=== PATIENT | female | born 1985 | race Caucasian/White ===

== ENCOUNTER → 2018-03-30 | Outpatient (CLI) | payer BC ==
--- NOTE | 2018-03-30 10:51 | KCIC ---
First trimester OB ultrasound dated 03/30/2018. No comparison available. CLINICAL INDICATION: Unsure dates. FINDINGS: Uterus measures 12.3 x 6.2 x 5.8 cm. Gestational sac and pole in the endometrial canal. The crown-rump length measures 3.17 cm, correlating with a 10 week 0 day gestation with estimated sonographic date of delivery of 10/26/2018. Yolk sac is visualized. Heart rate 173 bpm. No subchorionic collection. Gestational sac is normal in morphology. Fluid volume appears appropriate. Placenta is not well evaluated but appears to be anterior in location. Right ovary measures 3.3 x 2.0 x 1.5 cm. Left ovary measures 3.5 x 2.3 x 2.0 cm. No adnexal mass or free fluid. IMPRESSION: Single viable intrauterine gestation with estimated sonographic gestational age 10 weeks 0 days. No acute findings. Electronically signed by: Larry Suh MD (03/30/2018 10:48 AM) [id number]
== END | disposition home or self-care (01) ==
LOC: KCIC US 10:10
PROVIDERS: ATTEND Family Medicine
DX: Z34.81 Encounter for supervision of other normal pregnancy, first trimester (principal); Z3A.10 10 weeks gestation of pregnancy
CPT/HCPCS: 76801

== ENCOUNTER → 2018-06-30 | Outpatient (CLI) | payer BC ==
--- NOTE | 2018-06-30 12:31 | KCIC ---
Examination: Obstetric ultrasound greater than 14 weeks HISTORY: History of small for dates COMPARISON: None available. FINDINGS: Single living intrauterine with heart rate of 135 bpm. Three-vessel cord is seen. 4 chamber heart seen. Fluid in the bladder, kidneys, spine, brain, heart seen. The stomach could not be clearly identified. position is cephalic. Cervical length measures 5.4 cm. Amniotic fluid is normal Amniotic fluid index is 10.2 The biparietal diameter measures 5.5 cm corresponding to 22 weeks and 6 days Head circumference measures 20.3 cm corresponding 22 weeks and 4 days Abdominal circumference measures 17.6 cm corresponding to 22 weeks and 4 days Femur length measures 4.2 cm corresponding 24 weeks and 0 days. Head circumference to abdominal circumference ratio 1.1. Estimated weight is 564 g. LMP 01/22/2018. Clinical age is 22 weeks and 5 days with estimated date of delivery by LMP 10/29/2018. Estimated gestational age is 23 weeks and 0 days. Estimated date of delivery by ultrasound is 10/27/2018. The placenta is low-lying. Cephalic index 80.3 Head circumference to abdominal circumference ratio 1.1. Femur length to biparietal diameter 77.9 Femur length to head circumference 21.1 Femur length abdominal circumference 24.3. IMPRESSION: 1. Single living intrauterine with heart rate of 135 bpm. Estimated gestational age is 23 weeks and 0 days. 2. Low-lying placenta. 3. stomach would not be clearly identified. Close follow-up examination can be considered. Electronically signed by: Speedy Hidalgo MD (06/30/2018 12:26 PM) [email or web address]
== END | disposition home or self-care (01) ==
LOC: KCIC US 08:27
PROVIDERS: ATTEND Family Medicine
DX: O44.42 Low lying placenta NOS or without hemorrhage, second trimester (principal); O36.5920 Maternal care for other known or suspected poor fetal growth, second trimester, not applicable or unspecified; Z3A.23 23 weeks gestation of pregnancy
CPT/HCPCS: 76805

== ENCOUNTER 2018-10-19 20:01 | Inpatient (IN) | payer BC ==
[~2018-10-19] VITALS: Ht 149.9 cm; Wt 75.5 kg
[~2018-10-19 20:01] MED LIST: IV RINGERS,LACTATED 1000ML 1,000 ML IV SCH
[2018-10-19 20:47] LABS: BILIRUBIN,URINE NEGATIVE (NEG); CLARITY,URINE CLEAR; COLOR,URINE YELLOW; NITRITE,URINE NEGATIVE (NEG); PROTEIN,URINE NEGATIVE (NEG-TRACE); UROBILINOGEN,URINE 0.2 mg/dL (0.2 mg/dL)
[2018-10-19 20:50] LABS: AMNIO PT POSITIVE
[2018-10-19 21:07] LABS: BACTERIA,URINE FEW /HPF (0-FEW); RBC,URINE 0 /HPF (0-2); SQUAMOUS EPITHELIAL CELL,UR FEW /LPF; WBC,URINE OCC /HPF (0-4)
[2018-10-19] MEDS ORDERED: IV RINGERS,LACTATED 1000ML 1,000 ML IV SCH (22:00)
[2018-10-19] MEDS ORDERED: 0.9 % SODIUM CHLORIDE 10 ML DISP.SYRIN. IV PRN (22:00)
[2018-10-19] MEDS ORDERED: TERBUTALINE 1 MG/ML VIAL. SQ PRN (22:00)
[2018-10-19] MEDS ORDERED: CLINDAMYCIN 900MG PREMIX 50 ML IV SCH (22:00)
[2018-10-19] MEDS ORDERED: ACETAMINOPHEN 325 MG TABLET. PO PRN (22:00)
[2018-10-19] MEDS ORDERED: CITRIC ACID/SODIUM CITRATE 30 ML SOLUTION. PO PRN (22:00)
[2018-10-19] MEDS ORDERED: OXYTOCIN 30 UNIT/500 ML PREMIX 500 ML IV PRN (22:00)
[2018-10-19] MEDS ORDERED: ONDANSETRON PF 4 MG/2 ML VIAL. IV PRN (22:00)
[2018-10-19 22:11] VITALS: BP 140/88
[2018-10-19 22:53] LABS: BASO % 0 % (0-3); EOS # 0.2 x10^3/uL (0.0-0.7); EOS % 1 % (0-3); HEMATOCRIT 37.2 % (36.0-47.0); HEMOGLOBIN 12.6 g/dL (12.0-15.5); LYMPH # 1.7 x10^3/uL (1.0-4.8); LYMPH % 14 % (24-48); MEAN CORPUSCULAR HEMOGLOBIN 30 pg (25-35); MEAN CORPUSCULAR HGB CONC 34 g/dL (31-37); MEAN CORPUSCULAR VOLUME 89 fL (79-100); MONO # 0.5 x10^3/uL (0.0-1.1); MONO % 4 % (0-9); NEUT # 10.2 x10^3uL (1.8-7.7); NEUT % 81 % (31-73); PLATELET COUNT 147 x10^3/uL (140-400); RED CELL DISTRIBUTION WIDTH 14.1 % (11.5-14.5); WHITE BLOOD COUNT 12.6 x10^3/uL (4.0-11.0)
[2018-10-20] MEDS ORDERED: hydrOXYzine 25 MG TABLET PO PRN (02:00)
[2018-10-20] MEDS ORDERED: ACETAMINOPHEN 500 MG TABLET PO PRN (02:00)
[2018-10-20] MEDS ORDERED: hydrOXYzine PAMOATE 25 MG CAPSULE PO ONE (03:00)
[2018-10-20] MEDS ORDERED: METOCLOPRAMIDE HCL 10 MG/2 ML VIAL. ONE (05:51)
[2018-10-20] MEDS ORDERED: ONDANSETRON PF 4 MG/2 ML VIAL. ONE (05:51)
[2018-10-20] MEDS ORDERED: SUCCINYLCHOLINE 200 MG/10 ML VIAL. ONE (05:51)
[2018-10-20] MEDS ORDERED: PROPOFOL 20 ML IV ONE (05:51)
[2018-10-20] MEDS ORDERED: FAMOTIDINE 20 MG/2 ML VIAL ONE (05:51)
[2018-10-20] MEDS ORDERED: DEXAMETHASONE SOD PHOS 4 MG/ML VIAL ONE (05:52)
--- NOTE | 2018-10-20 05:57 | PDOC1 ---
OB - History Hx of Present Care: Good Care Ultrasounds: Normal mid trimester US Obstetrical Complications: None Medical Complications: None Past Family/Social History * Past Medical, Surgical, Family and Obstetric Histories reviewed from chart. Rubella: Immune RPR/VDRL: Negative GBS Status: Negative HBsAG: Negative OB - Chief Complaint & HPI Date of Admission: Date of Admission: October 19, 2018 at 20:01 Chief Complaint/History : 2 Para: 1 EGA: 39 Reason for admission: active labor Indication for : desires repeat Admission Nurse Assessment Rev: Yes OB - Admission Exam Physical Exam Vitals: VS - Last 72 Hours, by Label Date Time Temp Pulse Resp B/P (MAP) Pulse Ox O2 Delivery O2 Flow Rate FiO2 10/20/18 05:36 64 133/83 10/19/18 22:11 98.2 82 18 140/88 (105) 99 Room Air 98.2 HEENT: Normal Heart: Regular Rate Lungs: Clear Abdomen: Gravid, Non tender, Soft Extremities: Edema Reflexes: Normal Cervical Dilatation: Fingertip Effacement: 25% Station: -3 Membranes: Ruptured Amniotic Fluid: Clear Decelerations: Variable decelerations Contractions on Admission: 6-10 Minutes Apart Text A: 39 wks IUP SROM Previous c/s P: Admit for repeat c/s. pt. started having variable decels and required emergent c/s. ODILON SMITH Jr, MD October 20, 2018 05:57
[2018-10-20] MEDS ORDERED: fentaNYL PF VIAL 100 MCG/2 ML VIAL ONE (06:16)
--- NOTE | 2018-10-20 06:59 | PDOC4 ---
OB Operative Note Date: October 20, 2018 PRE OP DIAGNOSIS: Previoujs C- section (SROM) POST OP DIAGNOSIS: Previous C- section OPERATION PERFORMED: R [facility] Surgeon Dr. Greco Anesthesia: Gen Blood Loss 700 ml Specimen placenta and infant OB Findings: Position (Vertex), Sex (Female), (8/9), Weight (pending), Nuchal Cord (x2) Complications none Additional Remarks pt. stable ODILON GRECO Jr, MD October 20, 2018 06:59
[2018-10-20] MEDS ORDERED: KETOROLAC 30 MG/ML VIAL. IV PRN (07:00)
[2018-10-20] MEDS ORDERED: oxyCODONE/APAP 5/325 1 TAB TABLET PO PRN (07:00)
[2018-10-20] MEDS ORDERED: OXYTOCIN 30 UNIT/500 ML PREMIX 500 ML IV PRN (07:00)
[2018-10-20] MEDS ORDERED: MAG HYDROX/ALUMINUM HYD/SIMETH 30 ML ORAL.SUSP PO PRN (07:00)
[2018-10-20] MEDS ORDERED: CLINDAMYCIN 900MG PREMIX 50 ML IV ONE (07:00)
[2018-10-20] MEDS ORDERED: SIMETHICONE 80 MG TAB.CHEW PO PRN (07:00)
[2018-10-20] MEDS ORDERED: diphenhydrAMINE ORAL ELIXIR 12.5 MG/5 ML ML PO PRN (07:00)
[2018-10-20] MEDS ORDERED: ONDANSETRON PF 4 MG/2 ML VIAL. IV PRN (07:00)
[2018-10-20] MEDS ORDERED: ZOLPIDEM 5 MG TABLET. PO PRN (07:00)
[2018-10-20] MEDS ORDERED: 0.9 % SODIUM CHLORIDE 10 ML DISP.SYRIN. IV PRN (07:00)
[2018-10-20] MEDS ORDERED: IBUPROFEN 400 MG TABLET. PO PRN (07:00)
[2018-10-20] MEDS ORDERED: NALOXONE 0.4 MG/ML VIAL. IV PRN (07:00)
[2018-10-20] MEDS ORDERED: KETOROLAC 30 MG/ML INJ FOR OR. INJ ONE (07:04)
[2018-10-20] MEDS ORDERED: SEVOFLURANE 61 TO 120 MINUTES. IH ONE (07:04)
[2018-10-20] MEDS ORDERED: OXYTOCIN 10 UNIT/ML VIAL. ONE (07:04)
[2018-10-20] MEDS ORDERED: HYDROmorphone 12mg/30ml PCA 30 ML IV PRN (07:15)
[2018-10-20] MEDS ORDERED: HYDROmorphone 2 MG/ML VIAL IV ONE (07:15)
[2018-10-20] MEDS ORDERED: AZITHRMYCN 500MG IVPB FOR OMNI 250 ML IV ONE (07:30)
--- NOTE | 2018-10-20 07:34 | PDOC1 ---
CLERICAL AIDE Delivery Summary: CLERICAL AIDE Delivery Summary: Asked by Dr Greco to attend the repeat for variable decelerations. Female was delivered with nuchal cord X 2 , the cord was cut - infant cried and was brought to the radiant warmer where she was dried and stimulated and suctioned orally and nasally for a moderate amount of clear m ucous. with good heart, tone, cry, respiratory effort and improving color. Physical exam in brief: Near term female with a small scalp cut on the right side of scalp small amount of bleeding which has stopped will follow for need for further treatment. Infant to nursery accompanied by father per hospital protocol. Dr Tanner to continue care. Clark Mackey APRN. [facility] October 20, 2018 07:34
[2018-10-20 09:30] VITALS: BP 124/78
[2018-10-20 10:15] VITALS: BP 125/75
--- NOTE | 2018-10-20 11:20 | OP ---
DATE OF SURGERY: PREOPERATIVE DIAGNOSES: 1. A 39 weeks intrauterine . 2. Spontaneous rupture of membranes. 3. Previous section. 4. Active labor. POSTOPERATIVE DIAGNOSES: 1. A 39 weeks intrauterine . 2. Spontaneous rupture of membranes. 3. Previous section. 4. Active labor. PROCEDURE: Repeat low transverse section. SURGEON: Odilon Greco MD ANESTHESIA: GETA. ESTIMATED BLOOD LOSS: 700 mL. COMPLICATIONS: None. FINDINGS: Viable female , Apgars 8 and 9, weight pending. Nuchal cord x 2. Three-vessel cord placenta delivered under gentle traction intact. SUMMARY: A 33-year-old 2, para 1 at 39 weeks' gestation, who presented with spontaneous rupture of membranes. The patient began to go into active labor with variable decelerations, which required emergency section. The patient was counseled on risks, benefits and expectations of repeat section and voiced a clear understanding to proceed. DESCRIPTION OF PROCEDURE: The patient was taken to surgery suite and placed in dorsal supine position. She was prepped with ChloraPrep and draped in sterile fashion. After adequate anesthesia, a Pfannenstiel skin incision was made with scalpel down to and through the fascia. Fascia was extended laterally using curved Proctor scissors. The superior edge of the fascia was grasped with two Zander clamps and dissected free of the abdominal rectus muscle using blunt dissection along with Bovie cautery. Same process took place inferiorly. The abdominal rectus muscle dissected in the midline using curved Proctor scissors along with blunt dissection. The peritoneum was grasped with 2 hemostats and entered sharply with Metzenbaum scissors. Incision was extended superiorly as well as inferiorly. The Shkair ring retractor was placed. Bladder flap was created with Metzenbaum scissors and English pickups. Using sharp dissection, low transverse hysterotomy incision was made with scalpel down to the . The hysterotomy incision was extended laterally and superiorly digitally. With the aid of fundal pressure, the infant's head was delivered in a smooth atraumatic manner. Nuchal cord x 2 was visualized and reduced. With additional fundal pressure, the anterior shoulder was delivered followed by posterior shoulder and rest of female was delivered. The was suctioned with bulb syringe orally and nasally. Umbilical cord was clamped twice and cut and viable female was handed to waiting nursing staff. Umbilical cord blood as well as arterial pH were obtained. Three-vessel cord placenta was delivered under gentle traction intact. The uterus then exteriorized and cleared of clot and debris with moist lap. Hysterotomy incision was reapproximated using 1 Vicryl suture in a running locked fashion. Uterus palpated firm. Fallopian tubes and ovaries appeared normal bilaterally. Hysterotomy incision was reviewed and was hemostatic. Posterior cul-de-sac was cleared of clot and debris with moist lap. The uterus was then returned to the abdomen. The pericolic gutters were cleared of clot and debris with moist lap. Hysterotomy incision was reviewed and was hemostatic. The Shakir ring retractor was removed. Peritoneum was reapproximated using 1 Vicryl suture in running fashion. Fascia was reapproximated using Stratafix in running fashion. Skin was reapproximated using 4-0 Vicryl suture in subcuticular manner. The patient tolerated the procedure well and was taken to recovery room in stable condition. Sponge and needle counts were correct x 3. ODILON GRECO MD DR: SINCERE/chad JOB#: [id number] / [id number]
[2018-10-20 11:45] VITALS: BP 133/77
[2018-10-20] MEDS ORDERED: DIPHTH,PERTUSS(ACELL),TET TOX 0.5 ML DISP.SYRIN. VAX IM ONE (13:00)
[2018-10-20 18:00] VITALS: BP_SYST 106; BP_SYST 125; BP_DIAS 65; BP_DIAS 69
[2018-10-20 23:04] VITALS: BP 112/71
[2018-10-21 04:12] LABS: BASO % 0 % (0-3); EOS # 0.1 x10^3/uL (0.0-0.7); EOS % 1 % (0-3); HEMOGLOBIN 8.9 g/dL (12.0-15.5); LYMPH # 2.1 x10^3/uL (1.0-4.8); LYMPH % 18 % (24-48); MEAN CORPUSCULAR HEMOGLOBIN 30 pg (25-35); MEAN CORPUSCULAR HGB CONC 33 g/dL (31-37); MEAN CORPUSCULAR VOLUME 90 fL (79-100); MONO # 0.6 x10^3/uL (0.0-1.1); MONO % 6 % (0-9); NEUT # 8.7 x10^3uL (1.8-7.7); NEUT % 75 % (31-73); PLATELET COUNT 114 x10^3/uL (140-400); RED CELL DISTRIBUTION WIDTH 14.4 % (11.5-14.5); WHITE BLOOD COUNT 11.5 x10^3/uL (4.0-11.0)
[2018-10-21] MEDS: IBUPROFEN 400 MG TABLET. PO PRN ×4 (05:30→20:15)
[2018-10-21 06:15] VITALS: BP 124/72
[2018-10-21] MEDS: HYDROmorphone 2 MG TABLET PO PRN ×4 (11:08→23:01)
[2018-10-21] MEDS: FERROUS SULFATE 325 MG TABLET. PO SCH (11:08)
[2018-10-21 11:45] VITALS: BP 136/59
--- NOTE | 2018-10-21 13:02 | PDOC ---
OB Progress Note Date of Service 10/21/18 Time of Evaluation 1300 Notes Pt. feeling well. Lab Laboratory Tests Test 10/19/18 20:20 10/19/18 20:35 10/19/18 22:37 10/21/18 03:10 Urine Collection Type Unknown Urine Color Yellow Urine Clarity Clear Urine pH 6.0 Urine Specific [place] <=1.005 Urine Protein Negative mg/dL (NEG-TRACE) Urine Glucose (UA) Negative mg/dL (NEG) Urine Ketones (Stick) Negative mg/dL (NEG) Urine Blood Negative (NEG) Urine Nitrite Negative (NEG) Urine Bilirubin Negative (NEG) Urine Urobilinogen Dipstick 0.2 mg/dL (0.2 mg/dL) Urine Leukocyte Esterase Negative (NEG) Urine RBC 0 /HPF (0-2) Urine WBC Occ /HPF (0-4) Urine Squamous Epithelial Cells Few /LPF Urine Bacteria Few /HPF (0-FEW) Amniotic Fluid Swab Test Positive White Blood Count 12.6 x10^3/uL (4.0-11.0) 11.5 x10^3/uL (4.0-11.0) Red Blood Count 4.20 x10^6/uL (3.50-5.40) 3.00 x10^6/uL (3.50-5.40) Hemoglobin 12.6 g/dL (12.0-15.5) 8.9 g/dL (12.0-15.5) Hematocrit 37.2 % (36.0-47.0) 27.0 % (36.0-47.0) Mean Corpuscular Volume 89 fL (79-100) 90 fL (79-100) Mean Corpuscular Hemoglobin 30 pg (25-35) 30 pg (25-35) Mean Corpuscular Hemoglobin Concent 34 g/dL (31-37) 33 g/dL (31-37) Red Cell Distribution Width 14.1 % (11.5-14.5) 14.4 % (11.5-14.5) Platelet Count 147 x10^3/uL (140-400) 114 x10^3/uL (140-400) Neutrophils (%) (Auto) 81 % (31-73) 75 % (31-73) Lymphocytes (%) (Auto) 14 % (24-48) 18 % (24-48) Monocytes (%) (Auto) 4 % (0-9) 6 % (0-9) Eosinophils (%) (Auto) 1 % (0-3) 1 % (0-3) Basophils (%) (Auto) 0 % (0-3) 0 % (0-3) Neutrophils # (Auto) 10.2 x10^3uL (1.8-7.7) 8.7 x10^3uL (1.8-7.7) Lymphocytes # (Auto) 1.7 x10^3/uL (1.0-4.8) 2.1 x10^3/uL (1.0-4.8) Monocytes # (Auto) 0.5 x10^3/uL (0.0-1.1) 0.6 x10^3/uL (0.0-1.1) Eosinophils # (Auto) 0.2 x10^3/uL (0.0-0.7) 0.1 x10^3/uL (0.0-0.7) Basophils # (Auto) 0.0 x10^3/uL (0.0-0.2) 0.0 x10^3/uL (0.0-0.2) Treponema pallidum Antibody Nonreactive (Nonreactive) Hepatitis B Surface Antigen Nonreactive (Nonreactive) Laboratory Tests Test 10/21/18 03:10 White Blood Count 11.5 x10^3/uL (4.0-11.0) Red Blood Count 3.00 x10^6/uL (3.50-5.40) Hemoglobin 8.9 g/dL (12.0-15.5) Hematocrit 27.0 % (36.0-47.0) Mean Corpuscular Volume 90 fL (79-100) Mean Corpuscular Hemoglobin 30 pg (25-35) Mean Corpuscular Hemoglobin Concent 33 g/dL (31-37) Red Cell Distribution Width 14.4 % (11.5-14.5) Platelet Count 114 x10^3/uL (140-400) Neutrophils (%) (Auto) 75 % (31-73) Lymphocytes (%) (Auto) 18 % (24-48) Monocytes (%) (Auto) 6 % (0-9) Eosinophils (%) (Auto) 1 % (0-3) Basophils (%) (Auto) 0 % (0-3) Neutrophils # (Auto) 8.7 x10^3uL (1.8-7.7) Lymphocytes # (Auto) 2.1 x10^3/uL (1.0-4.8) Monocytes # (Auto) 0.6 x10^3/uL (0.0-1.1) Eosinophils # (Auto) 0.1 x10^3/uL (0.0-0.7) Basophils # (Auto) 0.0 x10^3/uL (0.0-0.2) Medications Current Medications Ringer's Solution 1,000 ml @ 125 mls/hr Q8H IV Last administered on 10/20/18at 07:32; Start 10/19/18 at 20:00 Sodium Chloride (Normal Saline Flush) 3 ml QSHIFT PRN IV AFTER MEDS AND BLOOD DRAWS; Start 10/19/18 at 22:00 Ringer's Solution 1,000 ml @ 125 mls/hr Q8H IV Last administered on 10/21/18at 00:37; Start 10/19/18 at 22:00 Acetaminophen (Tylenol) 650 mg PRN Q6HRS PRN PO MILD PAIN / TEMP; Start 10/19/18 at 22:00; Stop 10/20/18 at 01:57; Status DC Ondansetron HCl (Zofran) 4 mg PRN Q4HRS PRN IV NAUSEA/VOMITING 1ST CHOICE; Start 10/19/18 at 22:00 Citric Acid/ Sodium Citrate (Bicitra) 30 ml 1X PRN PRN PO DYSPEPSIA Last administered on 10/20/18at 05:46; Start 10/19/18 at 22:00; Stop 10/20/18 at 21:59; Status DC Terbutaline Sulfate (Brethine) 0.25 mg 1X PRN PRN SQ SEE COMMENTS Last administered on 10/20/18at 05:36; Start 10/19/18 at 22:00; Stop 10/20/18 at 21:59; Status DC Clindamycin Phosphate 50 ml @ 100 mls/hr Q8H IV ; Start 10/19/18 at 22:00; Status Cancel Oxytocin/Sodium Chloride 500 ml @ 0 mls/hr CONT PRN PRN IV Post delivery bleeding; Start 10/19/18 at 22:00 Ibuprofen (Motrin) 800 mg PRN Q6HRS PRN PO MODERATE PAIN 1ST CHOICE Last administered on 10/21/18at 05:30; Start 10/19/18 at 22:00 Acetaminophen (Tylenol) 1,000 mg PRN Q6HRS PRN PO MILD PAIN / TEMP Last administered on 10/20/18at 02:26; Start 10/20/18 at 02:00 Hydroxyzine HCl (Atarax) 50 mg PRN Q6HRS PRN PO ITCHING; Start 10/20/18 at 02:00 Hydroxyzine Pamoate (Vistaril) 50 mg 1X ONCE PO Last administered on 10/20/18at 02:35; Start 10/20/18 at 03:00; Stop 10/20/18 at 03:01; Status DC Clindamycin Phosphate 50 ml @ 100 mls/hr 1X ONCE IV ; Start 10/20/18 at 07:00; Stop 10/20/18 at 07:29; Status DC Propofol 20 ml @ As Directed STK-MED ONCE IV ; Start 10/20/18 at 05:51; Stop 10/20/18 at 05:52; Status DC Famotidine (Pepcid Vial) 20 mg STK-MED ONCE .ROUTE ; Start 10/20/18 at 05:51; S top 10/20/18 at 05:52; Status DC Metoclopramide HCl (Reglan Vial) 10 mg STK-MED ONCE .ROUTE ; Start 10/20/18 at 05:51; Stop 10/20/18 at 05:52; Status DC Ondansetron HCl (Zofran) 4 mg STK-MED ONCE .ROUTE ; Start 10/20/18 at 05:51; Stop 10/20/18 at 05:52; Status DC Succinylcholine Chloride (Anectine) 200 mg STK-MED ONCE .ROUTE ; Start 10/20/18 at 05:51; Stop 10/20/18 at 05:52; Status DC Dexamethasone Sodium Phosphate (Decadron) 4 mg STK-MED ONCE .ROUTE ; Start 10/20/18 at 05:52; Stop 10/20/18 at 05:53; Status DC Fentanyl Citrate (Fentanyl 2ml Vial) 100 mcg STK-MED ONCE .ROUTE ; Start 10/20/18 at 06:16; Stop 10/20/18 at 06:17; Status DC Sodium Chloride (Normal Saline Flush) 3 ml QSHIFT PRN IV AFTER MEDS AND BLOOD DRAWS; Start 10/20/18 at 07:00 Oxytocin/Sodium Chloride 500 ml @ 125 mls/hr CONT PRN IV EXCESSIVE POST- BLEEDING; Start 10/20/18 at 07:00; Stop 10/20/18 at 14:59; Status DC Ibuprofen (Motrin) 800 mg PRN Q4HRS PRN PO INFLAMMATION; Start 10/20/18 at 07:00; Stop 10/20/18 at 10:24; Status DC Ondansetron HCl (Zofran) 4 mg PRN Q6HRS PRN IV NAUSEA/VOMITING; Start 10/20/18 at 07:00; Stop 10/21/18 at 12:11; Status DC Docusate Sodium (Colace) 100 mg PRN BID PRN PO CONSTIPATION; Start 10/20/18 at 07:00 Al Hydroxide/Mg Hydroxide (Mylanta Plus Xs) 30 ml PRN Q4HRS PRN PO HEARTBURN / GAS; Start 10/20/18 at 07:00 Simethicone (Gas-X) 80 mg PRN AFTMEALHC PRN PO GAS / BLOATING; Start 10/20/18 at 07:00 Diphenhydramine HCl (Benadryl Oral Elixir) 12.5 mg PRN Q6HRS PRN PO ITCHING; Start 10/20/18 at 07:00 Ferrous Sulfate (Feosol) 325 mg BIDWMEALS PO Last administered on 10/21/18at 11:08; Start 10/20/18 at 08:00 Zolpidem Tartrate (Ambien) 5 mg PRN QHS PRN PO INSOMNIA, MAY REPEAT X1; Start 10/20/18 at 07:00 Oxycodone/ Acetaminophen (Percocet 5/325) 2 tab PRN Q4HRS PRN PO MODERATE PAIN; Start 10/20/18 at 07:00 Ketorolac Tromethamine (Toradol 30mg Vial) 30 mg PRN Q6HRS PRN IV PAIN; Start 10/20/18 at 07:00; Stop 10/25/18 at 06:59 Fentanyl Citrate 30 ml @ 0 mls/hr CONT PRN PRN IV PER PROTOCOL; Start 10/20/18 at 07:00; Stop 10/20/18 at 07:24; Status DC Naloxone HCl (Narcan) 0.4 mg PRN Q2MIN PRN IV SEE INSTRUCTIONS; Start 10/20/18 at 07:00 Ketorolac Tromethamine (Toradol For Or Only) 30 mg STK-MED ONCE INJ ; Start 10/20/18 at 07:04; Stop 10/20/18 at 07:05; Status DC Sevoflurane (Ultane) 60 ml STK-MED ONCE IH ; Start 10/20/18 at 07:04; Stop 10/20/18 at 07:05; Status DC Oxytocin (Pitocin) 10 unit STK-MED ONCE .ROUTE ; Start 10/20/18 at 07:04; Stop 10/20/18 at 07:05; Status DC Hydromorphone HCl (Dilaudid) 2 mg 1X ONCE IV Last administered on 10/20/18at 07:26; Start 10/20/18 at 07:15; Stop 10/20/18 at 07:23; Status DC Hydromorphone HCl 30 ml @ 0 mls/hr CONT PRN PRN IV PER PROTOCOL; Start 10/20/18 at 07:15 Azithromycin 250 ml @ 250 mls/hr 1X ONCE IV ; Start 10/20/18 at 07:30; Stop 10/20/18 at 08:29; Status DC Diphtheria/ Tetanus/Acell Pertussis (Boostrix) 0.5 ml ONCE ONCE VAX IM ; Start 10/20/18 at 13:00; Stop 10/20/18 at 13:01; Status DC Hydromorphone HCl (Dilaudid) 2 mg PRN Q4HRS PRN PO SEVERE PAIN Last adm inistered on 10/21/18at 11:08; Start 10/21/18 at 10:30 Exam Abd: soft, non tender, fundus firm Incision: clean, dry and intact Assessment POD#1 s/p repeat c/s Plan of Care: Continue current Tx, Mgmt ODILON SMITH Jr, MD October 21, 2018 13:02
[2018-10-21 16:00] VITALS: BP 145/84
--- NOTE | 2018-10-21 19:10 | NUR ---
Dilaudid given PO and witnessed by Mirna Rivas RN.
[2018-10-21] MEDS: DOCUSATE SODIUM 100 MG CAPSULE. PO PRN (20:15)
[2018-10-21 23:20] VITALS: BP 118/70
[2018-10-22] MEDS: IBUPROFEN 400 MG TABLET. PO PRN ×3 (03:39→21:13)
[2018-10-22 05:52] VITALS: BP 118/70
[2018-10-22] MEDS: FERROUS SULFATE 325 MG TABLET. PO SCH (08:52)
[2018-10-22] MEDS: DOCUSATE SODIUM 100 MG CAPSULE. PO PRN ×2 (08:52→21:13)
--- NOTE | 2018-10-22 09:27 | PDOC ---
OB Progress Note Date of Service 10/22/18 Time of Evaluation 0930 Notes Pt. feeling well. No complaints. Lab Laboratory Tests Test 10/21/18 03:10 White Blood Count 11.5 x10^3/uL (4.0-11.0) Red Blood Count 3.00 x10^6/uL (3.50-5.40) Hemoglobin 8.9 g/dL (12.0-15.5) Hematocrit 27.0 % (36.0-47.0) Mean Corpuscular Volume 90 fL (79-100) Mean Corpuscular Hemoglobin 30 pg (25-35) Mean Corpuscular Hemoglobin Concent 33 g/dL (31-37) Red Cell Distribution Width 14.4 % (11.5-14.5) Platelet Count 114 x10^3/uL (140-400) Neutrophils (%) (Auto) 75 % (31-73) Lymphocytes (%) (Auto) 18 % (24-48) Monocytes (%) (Auto) 6 % (0-9) Eosinophils (%) (Auto) 1 % (0-3) Basophils (%) (Auto) 0 % (0-3) Neutrophils # (Auto) 8.7 x10^3uL (1.8-7.7) Lymphocytes # (Auto) 2.1 x10^3/uL (1.0-4.8) Monocytes # (Auto) 0.6 x10^3/uL (0.0-1.1) Eosinophils # (Auto) 0.1 x10^3/uL (0.0-0.7) Basophils # (Auto) 0.0 x10^3/uL (0.0-0.2) Medications Current Medications Ringer's Solution 1,000 ml @ 125 mls/hr Q8H IV Last administered on 10/20/18at 07:32; Start 10/19/18 at 20:00; Stop 10/21/18 at 14:07; Status DC Sodium Chloride (Normal Saline Flush) 3 ml QSHIFT PRN IV AFTER MEDS AND BLOOD DRAWS; Start 10/19/18 at 22:00; Stop 10/21/18 at 14:07; Status DC Ringer's Solution 1,000 ml @ 125 mls/hr Q8H IV Last administered on 10/21/18at 00:37; Start 10/19/18 at 22:00; Stop 10/21/18 at 14:07; Status DC Acetaminophen (Tylenol) 650 mg PRN Q6HRS PRN PO MILD PAIN / TEMP; Start 10/19/18 at 22:00; Stop 10/20/18 at 01:57; Status DC Ondansetron HCl (Zofran) 4 mg PRN Q4HRS PRN IV NAUSEA/VOMITING 1ST CHOICE; Start 10/19/18 at 22:00; Stop 10/22/18 at 08:08; Status DC Citric Acid/ Sodium Citrate (Bicitra) 30 ml 1X PRN PRN PO DYSPEPSIA Last administered on 10/20/18at 05:46; Start 10/19/18 at 22:00; Stop 10/20/18 at 21:59; Status DC Terbutaline Sulfate (Brethine) 0.25 mg 1X PRN PRN SQ SEE COMMENTS Last administered on 10/20/18at 05:36; Start 10/19/18 at 22:00; Stop 10/20/18 at 21:59; Status DC Clindamycin Phosphate 50 ml @ 100 mls/hr Q8H IV ; Start 10/19/18 at 22:00; Status Cancel Oxytocin/Sodium Chloride 500 ml @ 0 mls/hr CONT PRN PRN IV Post delivery bleeding; Start 10/19/18 at 22:00; Stop 10/21/18 at 14:07; Status DC Ibuprofen (Motrin) 800 mg PRN Q6HRS PRN PO MODERATE PAIN 1ST CHOICE Last administered on 10/21/18at 09:30; Start 10/19/18 at 22:00 Acetaminophen (Tylenol) 1,000 mg PRN Q6HRS PRN PO MILD PAIN / TEMP Last administered on 10/20/18at 02:26; Start 10/20/18 at 02:00 Hydroxyzine HCl (Atarax) 50 mg PRN Q6HRS PRN PO ITCHING; Start 10/20/18 at 02:00 Hydroxyzine Pamoate (Vistaril) 50 mg 1X ONCE PO Last administered on 10/20/18at 02:35; Start 10/20/18 at 03:00; Stop 10/20/18 at 03:01; Status DC Clindamycin Phosphate 50 ml @ 100 mls/hr 1X ONCE IV ; Start 10/20/18 at 07:00; Stop 10/20/18 at 07:29; Status DC Propofol 20 ml @ As Directed STK-MED ONCE IV ; Start 10/20/18 at 05:51; Stop 10/20/18 at 05:52; Status DC Famotidine (Pepcid Vial) 20 mg STK-MED ONCE .ROUTE ; Start 10/20/18 at 05:51; Stop 10/20/18 at 05:52; Status DC Metoclopramide HCl (Reglan Vial) 10 mg STK-MED ONCE .ROUTE ; Start 10/20/18 at 05:51; Stop 10/20/18 at 05:52; Status DC Ondansetron HCl (Zofran) 4 mg STK-MED ONCE .ROUTE ; Start 10/20/18 at 05:51; Stop 10/20/18 at 05:52; Status DC Succinylcholine Chloride (Anectine) 200 mg STK-MED ONCE .ROUTE ; Start 10/20/18 at 05:51; Stop 10/20/18 at 05:52; Status DC Dexamethasone Sodium Phosphate (Decadron) 4 mg STK-MED ONCE .ROUTE ; Start 10/20/18 at 05:52; Stop 10/20/18 at 05:53; Status DC Fentanyl Citrate (Fentanyl 2ml Vial) 100 mcg STK-MED ONCE .ROUTE ; Start 10/20/18 at 06:16; Stop 10/20/18 at 06:17; Status DC Sodium Chloride (Normal Saline Flush) 3 ml QSHIFT PRN IV AFTER MEDS AND BLOOD DRAWS; Start 10/20/18 at 07:00; Stop 10/21/18 at 14:07; Status DC Oxytocin/Sodium Chloride 500 ml @ 125 mls/hr CONT PRN IV EXCESSIVE POST- BLEEDING; Start 10/20/18 at 07:00; Stop 10/20/18 at 14:59; Status DC Ibuprofen (Motrin) 800 mg PRN Q4HRS PRN PO INFLAMMATION; Start 10/20/18 at 07:00; Stop 10/20/18 at 10:24; Status DC Ondansetron HCl (Zofran) 4 mg PRN Q6HRS PRN IV NAUSEA/VOMITING; Start 10/20/18 at 07:00; Stop 10/21/18 at 12:11; Status DC Docusate Sodium (Colace) 100 mg PRN BID PRN PO CONSTIPATION Last administered on 10/22/18at 08:52; Start 10/20/18 at 07:00 Al Hydroxide/Mg Hydroxide (Mylanta Plus Xs) 30 ml PRN Q4HRS PRN PO HEARTBURN / GAS; Start 10/20/18 at 07:00 Simethicone (Gas-X) 80 mg PRN AFTMEALHC PRN PO GAS / BLOATING; Start 10/20/18 at 07:00 Diphenhydramine HCl (Benadryl Oral Elixir) 12.5 mg PRN Q6HRS PRN PO ITCHING; Start 10/20/18 at 07:00 Ferrous Sulfate (Feosol) 325 mg BIDWMEALS PO Last administered on 10/22/18at 08:52; Start 10/20/18 at 08:00 Zolpidem Tartrate (Ambien) 5 mg PRN QHS PRN PO INSOMNIA, MAY REPEAT X1; Start 10/20/18 at 07:00 Oxycodone/ Acetaminophen (Percocet 5/325) 2 tab PRN Q4HRS PRN PO MODERATE PAIN; Start 10/20/18 at 07:00 Ketorolac Tromethamine (Toradol 30mg Vial) 30 mg PRN Q6HRS PRN IV PAIN; Start 10/20/18 at 07:00; Stop 10/22/18 at 08:08; Status DC Fentanyl Citrate 30 ml @ 0 mls/hr CONT PRN PRN IV PER PROTOCOL; Start 10/20/18 at 07:00; Stop 10/20/18 at 07:24; Status DC Naloxone HCl (Narcan) 0.4 mg PRN Q2MIN PRN IV SEE INSTRUCTIONS; Start 10/20/18 at 07:00; Stop 10/22/18 at 08:08; Status DC Ketorolac Tromethamine (Toradol For Or Only) 30 mg STK-MED ONCE INJ ; Start 10/20/18 at 07:04; Stop 10/20/18 at 07:05; Status DC Sevoflurane (Ultane) 60 ml STK-MED ONCE IH ; Start 10/20/18 at 07:04; Stop 10/20/18 at 07:05; Status DC Oxytocin (Pitocin) 10 unit STK-MED ONCE .ROUTE ; Start 10/20/18 at 07:04; Stop 10/20/18 at 07:05; Status DC Hydromorphone HCl (Dilaudid) 2 mg 1X ONCE IV Last administered on 10/20/18at 07:26; Start 10/20/18 at 07:15; Stop 10/20/18 at 07:23; Status DC Hydromorphone HCl 30 ml @ 0 mls/hr CONT PRN PRN IV PER PROTOCOL; Start 10/20/18 at 07:15; Stop 10/22/18 at 08:08; Status DC Azithromycin 250 ml @ 250 mls/hr 1X ONCE IV ; Start 10/20/18 at 07:30; Stop 10/20/18 at 08:29; Status DC Diphtheria/ Tetanus/Acell Pertussis (Boostrix) 0.5 ml ONCE ONCE VAX IM Last administered on 10/21/18at 23:03; Start 10/20/18 at 13:00; Stop 10/20/18 at 13:01; Status DC Hydromorphone HCl (Dilaudid) 2 mg PRN Q4HRS PRN PO SEVERE PAIN Last administered on 10/21/18at 19:10; Start 10/21/18 at 10:30 Exam Abd: soft, non tender, fundus firm Incision site: clean, dry and intact Assessment POD#2 s/p repeat c/s Plan of Care: Continue current Tx, Mgmt ODILON SMITH Jr, MD October 22, 2018 09:27
[2018-10-22 11:35] VITALS: BP 122/76
[2018-10-22 18:25] VITALS: BP 128/74
[2018-10-22 23:00] VITALS: BP 134/77
[2018-10-23] MEDS: HYDROmorphone 2 MG TABLET PO PRN (01:15)
[2018-10-23] MEDS: IBUPROFEN 400 MG TABLET. PO PRN (05:40)
[2018-10-23 05:48] VITALS: BP 134/66
[2018-10-23] MEDS: DOCUSATE SODIUM 100 MG CAPSULE. PO PRN (08:26)
[2018-10-23] MEDS: FERROUS SULFATE 325 MG TABLET. PO SCH (08:26)
--- NOTE | 2018-10-23 08:27 | PDOC3 ---
OB DISCHARGE SUMMARY DATE OF ADMISSION: 10/19/18 DATE OF DISCHARGE: 10/23/18 REASON FOR ADMISSION: SROM, section INTRAPARTUM PROCEDURES: : Low Cerv Trans DISCHARGE DIAGNOSIS: Term Delivered DISCHARGE INFORMATION: Activity (ad lyndsey), Diet (regular), Instructions (pelvic rest x 6 wks, no driving x 2 wks, no lifting > 20 lbs. x 4 wks) HOSPITAL COURSE Term gestation presented with SROM with h/o previous c/s. Pt. had repeat c/s without complications. ODILON SMITH Jr, MD October 23, 2018 08:27
--- NOTE | 2018-10-23 08:28 | DISCH ---
DISCHARGE INSTRUCTIONS Condition on Discharge Condition on Discharge: Stable Activity After Discharge Activity Instructions for Disc: Activity as tolerated Lifting Instructions after Dis: No heavy lifting Driving Instructions after Dis: No driving for 2 weeks Diet after Discharge Diet after Discharge: Regular Contacting the DRHerminio after DC Call your doctor for: Concerns you may have Follow-Up Follow up with: Dr. Greco in 2 weeks. ODILON GRECO Jr, MD October 23, 2018 08:28
[2018-10-23] MEDS ORDERED: OXYC1TAB15 PO (08:30)
[2018-10-23] MEDS ORDERED: DOCU-109 PO (08:30)
[2018-10-23] MEDS ORDERED: IBUP-1027 PO (08:30)
[2018-10-23] MEDS ORDERED: MAGNESIUM HYDROXIDE 2,400 MG/30 ML ORAL.SUSP. PO PRN (08:30)
--- NOTE | 2018-10-23 09:09 | PATHOLOGY ---
[facility] Accession Number: [id number] . 01 Material submitted: . placenta - PLACENTA . 01 Clinical history: . . , turned urgent, nonreassuring status, repeat elective . 02 Diagnosis: 417 gram term placenta of an estimated 39 weeks gestation with attached membranes and umbilical cord: - No significant pathologic abnormalities. (JPM:house painter; 10/22/2018) MBR/10/22/2018 . 02 Comment: Clinically, at the time of , a nuchal cord x2 was identified. Examination of the placenta shows no evidence of an acute chorioamnionitis or villitis. There are no infarcts. (JPM:house painter; 10/22/2018) . 02 Electronically signed: . Flex Barr MD, Pathologist NPI- [id number] . 01 Gross description: . The specimen is received in formalin, labeled "Gilma Montes, placenta ", is a genao placenta with attached membrane and trivascular umbilical cord measures 20 x 18 x 1.5 cm and weighs 417 g (Without membranes and umbilical cord). The membranes are dusky green, slimy, semi-translucent and inserts at the placental disc edge. The eccentrically inserting umbilical cord measures 20.0 cm in length and up to 0.9 cm in width and inserts 4.5 cm closest to the peripheral disc. No true knots are identified. The surface is dusky green, dull with a distended vasculature. The maternal surface is intact with minimally adherent clots and several focal area consisting of saunders-white calcific granules that occupy less than 10% of the maternal surface. Sectioning reveals a maroon-red parenchyma. [facility] [employer] tissue is submitted as follows: A1: Membrane and umbilical cord. A2: surface. A3- A4: Maternal surface with calcific deposits. (SWS; 10/21/2018) . . . SHS/SHS . 02 Pathologist provided ICD-10: O82, Z37.0, Z3A.39 . 02 CPT . 138794 Specimen Comment: A courtesy copy of this report has been sent to Specimen Comment: [phone], , . Specimen Comment: Report sent to ,DR CARREON / DR LYLES Performed at: 01 [facility] [address] [place] [address] [address], [place] [id number] MD Zachary Clarke MD Phone: [phone] Performed at: 02 [facility] [address] [place] [id number] MD Flex Barr MD Phone: [phone]
== END 2018-10-23 10:07 | disposition home or self-care (01) | DRG 788 ==
LOC: 3 SO LND 20:01 → OBSVTOIN 20:01 → 3 SO LND 22:54 → 3 NORTH 10-20 10:00
PROVIDERS: ADMIT Specialist; ATTEND Specialist
PROC: 10D00Z1 Extraction of Products of Conception, Low, Open Approach (ICD-10-PCS; principal; 2018-10-20)
DX: O34.211 Maternal care for low transverse scar from previous cesarean delivery (principal); O76 Abnormality in fetal heart rate and rhythm complicating labor and delivery; O69.81X0 Labor and delivery complicated by cord around neck, without compression, not applicable or unspecified; Z3A.39 39 weeks gestation of pregnancy; Z37.0 Single live birth
CPT/HCPCS: 36415; 81001; 84112; 85025; 86592; 86850; 86900; 86901; 87340; 88307; 90471; 90715; J0330; J1100; J1170; J1885; J2405; J2590; J2704; J2765; J3010; J3105; J3490; J7120; Q0177